=== PATIENT | male | born 1980 | race Caucasian/White ===

== ENCOUNTER 2020-04-25 12:48 | Emergency (ER) | payer OTHER ==
[~2020-04-25] VITALS: Ht 182.9 cm; Wt 118.8 kg
[2020-04-25 13:01] VITALS: Ht 182.9 cm; Wt 118.8 kg
[2020-04-25 14:32] VITALS: BP 157/102
== END 2020-04-25 14:32 | disposition home or self-care (01) ==
LOC: ED 12:48
DX: H93.11 Tinnitus, right ear (principal); R51.9 Headache, unspecified; K64.9 Unspecified hemorrhoids; I10 Essential (primary) hypertension; Z88.0 Allergy status to penicillin